=== PATIENT | male | born 1960 | race African-American/Black ===

== ENCOUNTER 2016-06-20 11:21 | Emergency (ER) | payer MEDICARE, MEDICAID ==
[~2016-06-20] VITALS: Ht 180.3 cm; Wt 100.0 kg
[~2016-06-20 11:21] MED LIST: ABILIFY 10MG TA10 MG PO; ACCUPRIL10 MG; ACCUPRIL20TAB PO; AMOXICILLIN 50500 MG PO; ASPIRIN 81M81 MG/TA2 PO; BUSPAR5 MG PO; CARVEDILOL; CIPRO 500MG TA500 MG PO; CLEOCIN HC150 MG/CAP PO; COREG 3.123.125 MG/T PO; COUMADIN 2MG2 MG/TAB PO; COUMADIN 5MG5 MG/TAB PO; DAYPRO 600600 MG PO; DOXYCYCLINE 10100 MG PO; ESCITALOPRAM; FLEXERIL 1010 MG/TAB PO; FLOMAX 0.40.4 MG/CAP PO; LEXAPRO20 MG PO; LIDODERM 5% PATC1 EA TP; LORTAB 5/500 501 TAB PO; MOTRIN800 MG PO; NORCO 325 MG-51 TAB PO; NORCO 325 MG-7.1 TAB PO; PEN-VEE K500 MG PO; PENICILLIN250 MG PO; PERCOCET 325 MG1 TA2 PO; RISPERDAL 0.5M0.5 MG PO; RISPERDAL1 MG PO; ROBAXIN 75750 MG/TAB; SEROQUEL100 MG PO; SEROQUEL50 MG PO; ZITHROMAX Z PA250 MG PO; ZOCOR 10MG10 MG PO; [UNRECOGNIZED DRUG - OTHER]
[2016-06-20 11:22] VITALS: BP 153/90; TEMP 98.5
[2016-06-20] MEDS ORDERED: PERCOCET 325 MG1 TA3 PO (12:47)
[2016-06-20] MEDS ORDERED: FLEXERIL 1010 MG/TAB PO (12:47)
[2016-06-20 12:54] VITALS: PULSE 85
== END 2016-06-20 12:54 | disposition home or self-care (01) ==
LOC: COL.ER 11:21
DX: M54.5 Low back pain (principal); I10 Essential (primary) hypertension
CPT/HCPCS: J1885; J2360

== ENCOUNTER 2016-07-02 16:25 | Emergency (ER) | payer MEDICARE, MEDICAID ==
[~2016-07-02] VITALS: Ht 180.3 cm; Wt 105.0 kg
[~2016-07-02 16:25] MED LIST changes: +PERCOCET 325 MG1 TA3 PO
[2016-07-02 16:38] VITALS: TEMP 98.2
[2016-07-02 18:26] VITALS: BP 150/96; PULSE 90
== END 2016-07-02 18:28 | disposition home or self-care (01) ==
LOC: COL.ER 16:25
DX: M54.5 Low back pain (principal); G89.29 Other chronic pain; I10 Essential (primary) hypertension; Z87.442 Personal history of urinary calculi; F17.210 Nicotine dependence, cigarettes, uncomplicated
CPT/HCPCS: J1885; J2360

== ENCOUNTER 2016-07-10 15:39 | Emergency (ER) | payer MEDICARE, MEDICAID ==
[~2016-07-10] VITALS: Ht 180.3 cm; Wt 104.5 kg
[2016-07-10 15:40] VITALS: BP 139/86; PULSE 103; TEMP 97.1
[2016-07-10] MEDS ORDERED: ABILIFMAIN300 IM (15:44)
[2016-07-10] MEDS ORDERED: PROZAC 20MG20 MG PO (15:46)
[2016-07-10] MEDS ORDERED: DESYREL 50MG50 MG PO (15:46)
[2016-07-10] MEDS ORDERED: PERCOCET 325 MG1 TA2 PO (16:32)
== END 2016-07-10 17:00 | disposition home or self-care (01) ==
LOC: COL.ER 15:39
DX: M54.5 Low back pain (principal); G89.29 Other chronic pain
CPT/HCPCS: J1170; J1885

== ENCOUNTER → 2016-07-21 | Outpatient (CLI) | payer MEDICARE, MEDICAID ==
[~2016-07-21] MED LIST changes: +ABILIFMAIN300 IM; +DESYREL 50MG50 MG PO; +PROZAC 20MG20 MG PO
== END ==
LOC: COL.RAD 10:53
DX: M54.5 Low back pain (principal)

== ENCOUNTER 2016-07-27 14:45 | Outpatient (RCR) | payer MEDICARE, MEDICAID ==
[2016-07-30] MEDS ORDERED: COREG 3.123.125 MG/T PO (19:22)
== END 2016-08-13 09:25 | disposition home or self-care (01) ==
LOC: WSPT 14:45
DX: M54.5 Low back pain (principal); G89.29 Other chronic pain
CPT/HCPCS: G8978-GP; G8979-GP; G8980-GP

== ENCOUNTER 2016-07-30 19:14 | Emergency (ER) | payer MEDICARE, MEDICAID ==
[~2016-07-30] VITALS: Ht 180.3 cm; Wt 106.8 kg
[2016-07-30 19:18] VITALS: TEMP 98.2
[2016-07-30] MEDS ORDERED: COREG 3.123.125 MG/T PO (19:22)
[2016-07-30 20:25] VITALS: BP 148/94; PULSE 87
== END 2016-07-30 20:27 | disposition home or self-care (01) ==
LOC: COL.ER 19:14
DX: M54.5 Low back pain (principal); G89.29 Other chronic pain; I10 Essential (primary) hypertension; F17.210 Nicotine dependence, cigarettes, uncomplicated
CPT/HCPCS: J1885; J2360

== ENCOUNTER → 2016-08-10 | Outpatient (CLI) | payer MEDICARE, MEDICAID | LOC: MHCPAIN 08:42 | DX: G89.29 Other chronic pain (principal); M47.817 Spondylosis without myelopathy or radiculopathy, lumbosacral region | CPT/HCPCS: G0463 ==

== ENCOUNTER → 2016-08-19 | Outpatient (CLI) | payer MEDICARE, MEDICAID | LOC: MHCPAIN 08:59 | DX: M47.817 Spondylosis without myelopathy or radiculopathy, lumbosacral region (principal) | CPT/HCPCS: J1040; Q9967 ==